=== PATIENT | male | born 1940 | race Caucasian/White ===

== ENCOUNTER 2016-10-10 16:36 | Inpatient (IN) | payer MEDICARE, OTHER ==
[~2016-10-10] VITALS: Ht 190.5 cm; Wt 68.0 kg
[~2016-10-10 16:36] MED LIST: GLIM1TAB PO; METF10002 PO; METF500T4 PO; MYA400 PO; WARF5TAB7 PO; WARF7.5T4 PO; [UNRECOGNIZED DRUG - CODE] PO; [UNRECOGNIZED DRUG - CODE] PO
[2016-10-10 16:43] VITALS: BP 159/74; PULSE 90; RESP 24; O2SAT 96
--- NOTE | 2016-10-10 16:43 | ED.REPORT ---
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 Ever since the surgeries were completed, he has been exhibiting very decreased responsiveness and has been unable to communicate. Prior to the surgeries he was alert and able to communicate and his only neurological deficit was dysphagia. The doctors at [facility] thought that he may have had a stroke during the surgeries causing his altered mental status and they hoped his symptoms would dissipate although they clearly have not. He had his ELIAZAR drain replaced on 10/07. He was transported back to [place] on 10/08 and since then has been exhibiting tachypnea. He presents to the ED today near unresponsive with a respiratory rate of 48 with oxygen saturation of 96% on 6L of oxygen by nasal cannula. Chest x-ray taken yesterday interpreted as bilateral upper lobe infiltrates with bilateral apical pleural thickening. Records indicate he was sent home on Levaquin. All of the history is obtained via the as the patient is unable to communicate. Nursing Notes Stated Complaint: RESPIRATORY DISTRESS Nursing Notes Reviewed: Yes Allergies: Coded Allergies: No Known Allergies (Verified Allergy, Unknown, 01/20/16) Scheduled Clofazimine (Clofazimine) 1 Gm Powder 50 MG PO DAILY Ethambutol (Ethambutol) 400 Mg Tablet 800 MG PO AM Ethambutol (Ethambutol) 400 Mg Tablet 400 MG PO PM Glimepiride (Glimepiride) 1 Mg Tablet 1 MG PO DAILYAC Metformin (Metformin) 500 Mg Tablet 500 MG PO QAM Take with breakfast along with 1000mg metformin. Metformin (Metformin) 1,000 Mg Tablet 1,000 MG PO BID Rifabutin (Rifabutin) 150 Mg Capsule 150 MG PO BID Warfarin Sodium (Warfarin Sodium) 7.5 Mg Tablet 7.5 MG PO Wednesday Warfarin Sodium (Warfarin Sodium) 5 Mg Tablet 10 MG PO Qpm except Wednesday General Time Seen by MD: 16:36 Chief Complaint Other (Resp distress) Hx Obtained From: Spouse, EMS Arrived By: Ambulance Sudden in Onset?: No Onset Occurred: 4 days ago Symptom Duration: Since onset Recent Healthcare: Recent doctor visit, Recent hospitalization, Recent testing , Previous diagnosis, Previous surgery, Prior workup Similar Sx Previous: No Past Medical History Past Medical History Notes: Limited due to patient condition. 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 s/p lesion removal at [facility] - September 2016 CVA Anticoagulated on Warfarin Atrial fibrillation/flutter Type 2 diabetes Hyperlipidemia Actinic keratosis BPH Hx of subarachnoid hemorrhage Chronic dysphagia and hx of aspiration Severe protein/caloric malnutrition GERD Bronchiectasis Past Surgical History Pulmonary cavitary lesion repair September 2016 at [facility] Shoulder 2007 Knee Family History Unremarkable Social History Alcohol Use: Denies alcohol use Drug Use: Denies drug use Other Social History: Good social support, Ambulatory Status Wheelchair Review of Systems Review of Systems Note: ROS limited due to mental status Respiratory: Reports: Shortness of breath Complete sys rev & neg: except as marked. Neurologic: Reports: Change LOC Physical Exam Initial Vital Signs Vital Signs (First) Date Time Temp Pulse Resp B/P Pulse Ox O2 Delivery O2 Flow Rate FiO2 10/10/16 16:43 36.4 90 24 159/74 96 Nasal Cannula 6 Initial VS: Reviewed, Vital signs abnormal GENERAL: Critically ill-appearing Minimally responsive Cachectic Neck: Atraumatic, Supple Respiratory / Chest: No stridor Resp Distress / Stridor: Positive: Resp distress severe Coarse breath sounds bilaterally Tachypneic with respiratory rate of 48 ELIAZAR drain in left posterior chest with serosanguinous drainage Cardiovascular: Heart rate NL, Regular rhythm, Heart sounds NL, No murmurs ENT: Airway patent, Mucous membranes moist Abdomen: Atraumatic, Soft G tube in place with minimal surrounding erythema, mild green discharge expressed NEURO: Somnolent Mildly arousable Follows commands to squeeze my hand PSYCH: Unable to assess Interpretation & Diagnostics Lab Results Interpretation Result Diagram: 10/10/16 1643 10/10/16 1643 Test 10/10/16 16:43 10/10/16 18:15 10/10/16 18:30 White Blood Count 14.4th/mm3 (3.8-10.1) Red Blood Count 3.67mil/mm3 (4.40-5.80) Hemoglobin 10.3g/dL (13.8-17.2) Hematocrit 33.9% (41.0-50.0) Mean Corpuscular Volume 92.4fL (81-100) Mean Corpuscular Hemoglobin 38.1pg (27.0-35.0) Mean Corpuscular Hemoglobin Concent 30.4% (32.0-37.0) Red Cell Distribution Width 16.9% (12.3-15.4) Platelet Count 418bil/L (150-400) Neutrophils (%) (Auto) 83.2% (40-74) Lymphocytes (%) (Auto) 3.3% (14-46) Monocytes (%) (Auto) 12.7% (4-12) Eosinophils (%) (Auto) 0.1% (0-5) Basophils (%) (Auto) 0.1% (0-3) Hold Purple Top Tube Received (Received) Prothrombin Time 10.0sec (8.1-12.5) Prothromb Time International Ratio 0.94ratio Activated Partial Thromboplast Time 25.0sec (22.8-33.0) Hold Blue Top Tube Received (Received) Sodium Level 146mEq/L (134-144) Potassium Level 4.9mEq/L (3.5-5.2) Chloride Level 101mEq/L (97-108) Carbon Dioxide Level 34mmol/L (18-29) Blood Urea Nitrogen 40mg/dL (8-27) Creatinine 0.79mg/dL (0.76-1.27) Estimat Glomerular Filtration Rate 101mL/min (>59) Glucose Level 284mg/dL (60-99) Calcium Level 11.3mg/dL (8.5-10.1) Total Bilirubin 0.4mg/dL (0.0-1.2) Aspartate Amino Transf (AST/SGOT) 29U/L (0-50) Alanine Aminotransferase (ALT/SGPT) 19U/L (0-44) Alkaline Phosphatase 94U/L (25-160) Troponin T 0.062ug/L (0.0-0.011) Pro-B-Type Natriuretic Peptide 1702pg/mL (0-486) Total Protein 6.6g/dL (6.4-8.4) Albumin 2.2g/dL (3.4-5.0) Procalcitonin 0.11ng/mL (0.00-0.08) Hold [place] Top Tube Received (Received) Urine Color Yellow (YELLOW) Urine Appearance Clear (CLEAR,HAZY) Urine pH 5.5 (5.0-8.0) Urine Specific [place] 1.025 (1.003-1.035) Urine Protein Negativemg/dL (NEG,TRACE) Urine Glucose (UA) Negativemg/dL (NEGATIVE) Urine Ketones Negativemg/dL (NEGATIVE) Urine Occult Blood Trace (NEGATIVE) Urine Nitrite Negative (NEGATIVE) Urine Bilirubin Negative (NEGATIVE) Urine Urobilinogen Normalmg/dL (NORMAL) Urine Leukocyte Esterase Negative (NEGATIVE) Urine RBC 0-2/hpf (0-2) Urine WBC 0-5/hpf (0-5) Urine Epithelial Cells Occasional/hpf (NONE-MOD) Urine Crystals Amorphous urates (NONE Urine Bacteria None/hpf (NONE-FEW) Urine Hyaline Casts None/lpf (NONE) Urine Granular Casts None seen (NONE SEEN) Urine Waxy Casts None seen (NONE SEEN) Urine Red Blood Cell Casts None seen (NONE SEEN) Urine White Blood Cell Casts None seen (NONE SEEN) Urine Mucus None seen (None Seen) Urine Trichomonas None seen (NONE SEEN) Urine Yeast None (NONE SEEN) Urinalysis Comment None Urine Culture Reflexed Not indicated CSF Appearance Clear (CLEAR) CSF Color Colorless (COLORLESS) CSF WBC 0/mm3 (0-5) CSF RBC 3/mm3 CSF Mononuclear WBCs % CSF Polynuclear WBCs % CSF Other Cells CSF Glucose 148mg/dL (45-90) CSF Total Protein 16mg/dL (15-45) ECG Interpretation ECG Interpretation: Sinus rhythm rate [address] segment or T wave changes Time: 17:27 Interpreted by: ED physician Normal ECG Interpretation: No acute ischemic changes X-Ray Chest Interpretation Chest Xray Interpretation: FINDINGS: Surgical changes and devices: None. Lungs and pleura: No pleural effusions or pneumothorax. Lungs are abnormal with a bilateral chronic pneumonia pattern, and also presumed distortion of operative procedures at each upper lobe where a new surgical clips and rib resections are present nearly symmetric in appearance bilaterally. Also, lower lung surgical clips are seen. Mediastinum: Mediastinal contours appear normal. Heart size is normal. Bones and chest wall: No suspicious bony lesions. Overlying soft tissues appear unremarkable. IMPRESSION: Extensive postsurgical changes as discussed, chronic lung disease, no pneumothorax found. Dictated by: Grey Davis M.D. on 10/10/2016 at 17:35 Approved by: Grey Davis M.D. on 10/10/2016 at 17:36 View: Portable, 1 view Interpretation / Wet Read by: Interpret - Radiologist CT Head Interpretation IMPRESSION: Normal for age, source of altered mental status is not seen. Dictated by: Grey Davis M.D. on 10/10/2016 at 18:00 Approved by: Grey Davis M.D. on 10/10/2016 at 18:00 Study: Head CT no contrast Interpretation / Wet Read by: Interpret - Radiologist Procedures Lumbar Puncture Text / Dict Note: Clear fluid expressed Time: 18:24 Procedure Performed by: ED physician Consent / Setup / Site Prep: Informed consent provided, Consent from spouse , Time-out performed, Hand hygiene observed, Stand sterile technique, Sterile drapes applied, Patient sitting up Skin Preparation Agent: Betadine Local Anesthesia: Lidocaine w epi 1% Inserted Needle at: L3 L4 Post-Procedure / Complications: Dressing applied, No complications, Tolerated procedure well, Patient stable (no change in VS before or after procedure) Re-Eval/Medical Decision Med Decision/Clinical Course 76-year-old male history of diabetes, Mycobacterium avium, recent [address] [facility] for bilateral thoracotomy for cavitary lesion evacuations presenting with altered mental status 4 days. By reports worsening shortness of breath and altered mental status 4 days. On arrival he is minimally responsive. Requiring 6 L oxygen. He is able to follow minimal commands but is very somnolent. His white count is 14,000. His chest x-ray shows chronic bilateral pneumonia. CT chest is pending. Urine is negative for infection. Lumbar puncture was performed and CSF is pending. His CT brain with no acute pathology. Discussed with infectious disease Dr. Miranda inthis patient well and recommended vancomycin, Levaquin, Zosyn to cover hospital acquired pneumonia with CSF results pending. He will see the patient. Admitted for altered mental status, pneumonia, severe respiratory distress. On discussion with the family is DNR/DNI and they are considering comfort measures but this time would like to pursue antibiotics. They are aware that he may not survive this episode. He was admitted to CCU-step down unit in critical condition. Not a good bipap candidate given AMS will keep on oxymask for now. Source of Hx: Old records, EMS, Family Re-Evaluation/Progress : Time of Eval: 17:54 Re-Evaluation/Progress Note: Pt rechecked. Informed family of need for admission. Family understands and agrees with need for admission. All questions addressed. Consultation #1: Referral / Consult Name: Emeka Miranda MD Call Returned at: 17:52 Tow Boat Captain: Will see patient, Agrees with eval, Agrees with plan Note: Consulted ID. Recommends LP and admit. Consultation #2: Referral / Consult Name: Mario Olivo MD Consulted With: Hospitalist Call Returned at: 18:09 Tow Boat Captain: Will see patient, Agrees with eval, Agrees with plan, Accepts admit Counseled Regarding: Diagnosis, Lab results, Need for admission Discharge & Departure Impression: Primary Impression: Hospital-acquired pneumonia Additional Impressions: Respiratory failure Chronicity: acute Respiratory failure complication: hypoxia Qualified Code : J96.01 - Acute respiratory failure with hypoxia Altered mental status Altered mental status type: somnolence Qualified Code: R40.0 - Somnolence History of Mycobacterium avium complex infection Disposition: ADMITTED TO HOSPITAL Discharge Condition All VS Reviewed: Yes Condition: Critical Referrals: Pramod Blancas MD (PCP) Crit Care Except Billable Proc Time Spent: 30-74 minutes Services Performed: Patient management by me, Time spent at bedside, Reviewing test results, Reviewing imaging, Discussing patient care, Documentation in record, Time with fam/surrogate Critical Care Notes: 60 minutes Scribe Attestation Portions of this note were transcribed by Gopi Ramos. IDr. Duckworth personally performed the history, physical exam and medical decision-making; I reviewed and confirmed the accuracy of the information in the transcribed note. copies to: Pramod Blancas MD, Ben M MD Oct 10, 2016 16:43 GOPI RAMOS Oct 10, 2016 16:57 Time Spent: 30-74 minutes Services Performed: Patient management by me, Time spent at bedside, Reviewing test results, Reviewing imaging, Discussing patient care, Documentation in record, Time with fam/surrogate Critical Care Notes: 60 minutes Scribe Attestation Portions of this note were transcribed by Gopi Ramos. Dr. Donita Pal personally performed the history, physical exam and medical decision-making; I reviewed and confirmed the accuracy of the information in the transcribed note. copies to: Pramod Blancas MD, Ben M MD Oct 10, 2016 16:43 GOPI RAMOS Oct 10, 2016 16:57
[2016-10-10 17:19] LABS: INR 0.94 ratio
[2016-10-10 17:26] LABS: BASOPHILS % (AUTO) 0.1 % (0-3); EOSINOPHILS % (AUTO) 0.1 % (0-5); MONOCYTES % (AUTO) 12.7 % (4-12); Mean Corpuscular Hemoglobin 38.1 pg (27.0-35.0); Mean Corpuscular Volume 92.4 fL (81-100); NEUTROPHILS % (AUTO) 83.2 % (40-74); Platelet Count 418 bil/L (150-400)
--- NOTE | 2016-10-10 17:38 | DRSVH ---
PROCEDURE: X-RAY CHEST ONE VIEW, PORTABLE ([id number]) INDICATIONS: dyspnea TECHNIQUE: One view of the chest was acquired. COMPARISON: None. FINDINGS: Surgical changes and devices: None. Lungs and pleura: No pleural effusions or pneumothorax. Lungs are abnormal with a bilateral chronic pneumonia pattern, and also presumed distortion of operative procedures at each upper lobe where a n ew surgical clips and rib resections are present nearly symmetric in appearance bilaterally. Also, l ower lung surgical clips are seen. Mediastinum: Mediastinal contours appear normal. Heart size is normal. Bones and chest wall: No suspicious bony lesions. Overlying soft tissues appear unremarkable. IMPRESSION: Extensive postsurgical changes as discussed, chronic lung disease, no pneumothorax found . Dictated by: Grey Davis M.D. on 10/10/2016 at 17:35 Approved by: Grey Davis M.D. on 10/10/2016 at 17:36
[2016-10-10 17:40] LABS: TROPONIN T 0.062 ug/L (0.0-0.011)
--- NOTE | 2016-10-10 18:02 | DRSVH ---
PROCEDURE: CT BRAIN WITHOUT CONTRAST ([id number]) INDICATIONS: altered mental status TECHNIQUE: Noncontrast 4.5 mm thick angled axial sections acquired from the foramen magnum to the vertex, with c oronal reformats. COMPARISON: [facility], CT, CT BRAIN WO CON, 01/02/2016, 14:44. FINDINGS: Image quality: Excellent. CSF spaces: Basal cisterns are patent. No extra-axial fluid collections. Ventricles are normal in size and shape. Brain: No midline shift. No intracranial masses or hemorrhage. Gomez-white matter interface is norm al. Skull and face: Calvarium and visualized facial bones are intact, without suspicious lesions. Sinuses: Visualized sinuses and mastoids are clear. IMPRESSION: Normal for age, source of altered mental status is not seen. Dictated by: Grey Davis M.D. on 10/10/2016 at 18:00 Approved by: Grey Davis M.D. on 10/10/2016 at 18:00
[2016-10-10] MEDS ORDERED: Ondansetron 2 mg/mL 2 mL Inj IVPUSH PRN ×2 (18:10→23:20)
[2016-10-10] MEDS ORDERED: Alum-Mag Hydrox-Simeth 30 mL Suspension PO PRN (18:10)
[2016-10-10] MEDS ORDERED: 0.9% Sodium Chloride 500 ML IV ONE (18:28)
[2016-10-10] MEDS ORDERED: Piperacillin-Tazo 3.375 Gm Inj 3.375 GM in Dextrose 5% Minibag Plus 50 ML IV ONE ×2 (18:30→21:30)
[2016-10-10] MEDS ORDERED: Vancomycin Dose per Pharmacist XX ONE (18:30)
[2016-10-10] MEDS ORDERED: levoFLOXacin Inj 750 MG in IV Premix 1 EACH IV ONE (18:30)
[2016-10-10 18:32] VITALS: BP 105/49; PULSE 86; RESP 34; O2SAT 100
[2016-10-10] MEDS ORDERED: Vancomycin Inj 1,500 MG in 0.9% Sodium Chloride 500 ML IV ONE (18:40)
[2016-10-10 18:43] LABS: APPEARANCE,URINE CLEAR (CLEAR,HAZY); COLOR,URINE YELLOW (YELLOW); OCCULT BLOOD,URINE TRACE (NEGATIVE); PH,URINE 5.5 (5.0-8.0); UROBILINOGEN,URINE NORMAL (NORMAL)
[2016-10-10 19:14] LABS: APPEARANCE,CSF CLEAR (CLEAR); COLOR,CSF COLORLESS (COLORLESS); WHITE BLOOD CELL,CSF 0 /mm3 (0-5)
--- NOTE | 2016-10-10 19:21 | DRSVH ---
PROCEDURE: CT ANGIO CHEST PULMONARY EMBOLISM ([id number]) INDICATIONS: dyspnea recent lung surgery TECHNIQUE: After the administration of intravenous contrast, 2 mm thick sections acquired from the pulmonary api valeriy to the posterior costophrenic angles. 3-dimensional maximum intensity projection (MIP) coronal a nd sagittal reformats were then acquired through the thorax. For radiation dose reduction, the follo wing was used: automated exposure control, adjustment of mA and/or kV according to patient size. COMPARISON: [facility], CT, CT CHEST WO CON, 02/26/2016, 17:20. [facility], CR, XR CHEST 1VW (PORTABLE), 10/10/2016, 17:07. FINDINGS: Image quality: Excellent. Pulmonary arteries: Pulmonary arteries are normal in size, and demonstrate no intraluminal filling d efects to suggest central pulmonary embolism. Lungs and pleura: Lungs are abnormal with dense consolidation at the upper lungs bilaterally, and a lesser degree of alveolar consolidation at the mid and lower lungs bilaterally best seen posteriorly. Small bilateral left greater than right pleural effusions and no pneumothorax. Central and peripher al airways are patent. Mediastinum: Heart size is normal, without pericardial effusion. No mediastinal or hilar adenopathy . Thoracic aorta is normal in caliber and enhancement. Esophagus is normal in caliber, without hiat al hernia. Bones and chest wall: No suspicious bony lesions. Ribs and thoracic spine appear intact throughout. Thyroid gland appears normal where well visualized. No axillary or supraclavicular adenopathy. Abdomen: Visualized upper abdominal solid organs appear normal in the early arterial phase of enhanc ement. IMPRESSION: Prominent bilateral upper and midlung alveolar consolidation in this patient who has und ergone extensive surgical intervention at the upper lungs bilaterally. It is unclear whether this re presents an expected sequela of the operative procedure but this is in an area previously more normal appearing lung parenchyma with cavitary lesions bilaterally (left greater than right in February of 2016). Additional airspace disease has extended inferiorly into the lungs through their middle and lower thi rds bilaterally. Small left effusion incidentally noted. Dictated by: Grey Davis M.D. on 10/10/2016 at 19:16 Approved by: Grey Davis M.D. on 10/10/2016 at 19:20
[2016-10-10 19:44] VITALS: BP 112/64; PULSE 87; RESP 22; O2SAT 68; O2SAT 93
--- NOTE | 2016-10-10 20:45 | PCM.HPMED ---
Subjective Date of Service Oct 10, 2016 Primary Provider: Admitting Physician: Mario Olivo MD Primary Care Physician: Pramod Blancas MD Attending Physician: Mario Olivo MD Admit Status: From the Emergency Department Chief Complaint: Altered Mental Status History of Present Illness: Sim Pryor is a 76 y/o male with a history of recent bilateral upper lobe wedge resections for cavitary lesion repair secondary to chronic mycobacterium avium intracellulare infection, as well as a distant history of cerebrovascular accident in 2008 and SAH in 2014 as well as and atrial fibrillation previously on warfarin, diabetes mellitus [id number] presenting to the [facility] ED via EMS from [facility] with his due to worsening altered mental status onset 4 days ago. Due to the patient's altered mental status history was obtained from the as well as from the ED physician and recent [facility] hospital records. The patient was followed for MAC infection by Dr. Miranda as well as the pulmonary MAC specialist at [facility] and had been on chronic antibiotic therapy for reportedly over a years including azithromycin, ethambutol, rifabutin, moxifloxacin as well as Clofazimine.The patient was initially diagnosed [address] chest CT, bronchoscopy, and sputum cultures. However the patient failed to improve on antibiotic therapy and was recently hospitalized from early 09/16/2016 to 10/08/2016 at [facility] for bilateral upper lobe wedge resection to remove pulmonary cavitary lesions caused by mycobacterium avium complex. Per secondary report ever since the surgeries were completed, he has been exhibiting very decreased responsiveness with episodes of worsening respiratory status and has been unable to communicate. The reports that prior to the recent lobectomies he was alert and able to communicate and his only neurological deficit from the subarachnoid hemorrhage in 2014 was dysphagia. Per the ED provider "The doctors at [facility] thought that he may have had a stroke during the surgeries causing his altered mental status and they hoped his symptoms would dissipate although they clearly have not." The patient was discharged back to [facility] in [place], [place] via ambulance on 10/08 and since then has been exhibiting tachypnea however records from [facility] mentioned tachypnea on October 05 as well. He presented to the ED today near unresponsive with a respiratory rate of 48 with oxygen saturation of 96% on 6L of oxygen by nasal cannula. Chest x-ray taken yesterday interpreted as bilateral upper lobe infiltrates with bilateral apical pleural thickening. Records from [facility] indicate he was discharged on Levaquin. The indicates that the patient has expressed a desire to be DNR/DNI. Review of Systems: Unable to obtain a review of systems due to altered mental status. Allergies Coded Allergies: No Known Allergies (Verified Allergy, Unknown, 01/20/16) Home Medications Medications per [facility] Ethambutol 1200 MG PO via PEG Tamsulosin 0.4 mg via PEG Lantus 14 units at bedtime Levaquin 75 mg via PEG Rifabutin 150 mg via PEG Famotidine 20 mg via PEG Metoclopramide 5 mg every 6 hours. Tylenol 650 mg every 6 hours via PEG Humalog lispro 6 units subcutaneous 5 times daily as well as sliding scale MiraLAX when necessary Oxycodone 5 mg solution every 4 hours when necessary Trazodone when necessary for insomnia PMH Mycobacterium avium complex with pulmonary cavitated lesions s/p lesion removal at [facility] - September 2016 CVA in 2008 Paroxysmal Atrial fibrillation/flutter Type 2 diabetes not insulin dependant Hyperlipidemia Actinic keratosis BPH Hx of subarachnoid hemorrhage 2014 Chronic dysphagia and hx of aspiration Severe protein/caloric malnutrition GERD Bronchiectasis Surgical History Pulmonary cavitary lesion repair September 2016 at [facility] Shoulder 2007 Knee Family History Mother had diabetes mellitus Father is of unknown cause Social History Occupation: retired Hx Alcohol Use: No Hx Substance Use: No Hx Tobacco Use: Yes Smoking Status: Former Smoker Years of Smokin Living Arrangement: [facility] Facility Exam Vital Signs Vital Sign - Last Date Time Temp Pulse Resp B/P Pulse Ox O2 Delivery O2 Flow Rate FiO2 10/10/16 19:44 36.5 87 22 112/64 68 OxyMask 5.00 Exam General: Cachectic elderly gentleman on wearing an oxygen mask in tachypnic mild respiratory distress not following commands Eyes: Pupils constricted equal round and reactive to light, anicteric sclera, noninjected conjunctiva HENT: Normocephalic atraumatic, dry mucous membranes without central cyanosis, oropharynx clear without purulent exudate or cobblestoning mucosa Neck: Supple, trachea midline, without thyromegaly or JVD Cardiovascular: Regular rate and regular rhythm, S1-S2 present, no S3-S4, without murmurs rubs or gallops noted Lungs/chest wall: Tachypneic with coarse breath sounds bilaterally left worse than right, with decreased breath sounds on the left and notable dullness to percussion over the left chest wall, without wheezing, patient appears to have a well healed surgical scar on his right posterior axillary region and has a drain in place in his left axilla with serosanguineous drainage in the bulb Abdomen: Soft, nontender, nondistended, tympanic to percussion, normal active bowel sounds, without organomegaly, PEG in place in epigastrium Extremities: No cyanosis clubbing or edema noted, pulses intact bilaterally at dorsalis pedis and radial : Morales catheter in place Skin: Warm and dry MSK: Patient is cachectic with notable muscle atrophy globally Neuro: Unable to obtain due to altered mental status Psych: Unable to obtain due to altered mental status Lab and Diagnostics Result Diagram: 10/10/16 1643 10/10/16 1643 X-Rays, CTs and MRIs CT ANGIO CHEST PULMONARY EMBOLISM IMPRESSION: Prominent bilateral upper and midlung alveolar consolidation in this patient who has undergone extensive surgical intervention at the upper lungs bilaterally. It is unclear whether this represents an expected sequela of the operative procedure but this is in an area previously more normal appearing lung parenchyma with cavitary lesions bilaterally (left greater than right in February of 2016). Additional airspace disease has extended inferiorly into the lungs through their middle and lower thirds bilaterally. Small left effusion incidentally noted. Approved by: Grey Davis M.D. on 10/10/2016 at 19:20 CT BRAIN WITHOUT CONTRAST IMPRESSION: Normal for age, source of altered mental status is not seen. Approved by: Grey Davis M.D. on 10/10/2016 at 18:00 X-RAY CHEST ONE VIEW, PORTABLE IMPRESSION: Extensive postsurgical changes as discussed, chronic lung disease, no pneumothorax found. Approved by: Grey Davis M.D. on 10/10/2016 at 17:36 Assessment & Plan Sim Pryor is a 76 y/o male with a history of recent bilateral upper lobe wedge resections for cavitary lesion repair secondary to chronic mycobacterium avium intracellulare infection, as well as a distant history of cerebrovascular accident in 2008 and SAH in 2014 as well as and atrial fibrillation previously on warfarin, diabetes mellitus [id number] presenting to the [facility] ED via EMS from [facility] with his due to worsening altered mental status onset 4 days ago. # Acute hypercapnic respiratory failure - ABG shows a ph of 7.1 with a CO2 of 131, O2 of 83 and HCO3 of 39 - patient is DNI and a poor candidate for biPAP as he will not be able to protect his airway, but PEEP to stent open possible collapsed airways causing CO2 trapping was considered - A discussion was held with the patient's at bedside, given the patient's acute deteriorating respiratory status on chronic deteriorating health he will be made comfort care # Acute Severe sepsis - SIRS criteria are met with white cell count of 14.4, pulse of 90, respiratory rate of 24, temperature 36.4 on admission - Severe sepsis criteria met with lactic acid of 2.3 on admission - Likely secondary to hospital-acquired pneumonia with CT chest being read as prominent bilateral upper and midlung alveolar consolidation and with recent discharge from [facility] on October 08 - One half normal saline at 200 mL's per hour - Trend lactic every 2 hours repeated normal at 1.9 - Antibiotics discussed in pneumonia below - Blood culture pending - A discussion was held with the patient's at bedside, given the patient's acute deteriorating respiratory status on chronic deteriorating health he will be made comfort care # Acute bilateral Hospital acquired pneumonia - Patient has a history of chronic MAC infection with recent bilateral upper lobe wedge resections for significant cavitary lesions discharged from [facility] on October 08 - Infectious disease Dr. Botello was consulted from the emergency department and giving the CT scan results will be placed on antibiotics for hospital-acquired pneumonia including vancomycin, Levaquin, Zosyn - Vancomycin 1500 mg IV started in ED - Levaquin 750 mg IV started in the ED - Zosyn 3.375 grams started in ED - A discussion was held with the patient's at bedside, given the patient's acute deteriorating respiratory status on chronic deteriorating health he will be made comfort care # Acute altered mental status - likely secondary to severe hypercapnia seen on ABG - Patient has a history of CVA in 2009 as well as subarachnoid hemorrhage in 2015 however reports only lasting effects are dysphasia - Patient does have a history of atrial fibrillation and was previously on warfarin however this medication has been discontinued and it is uncertain of how long, [facility] records indicate that the patient has been on Lovenox 40 mg which is subtherapeutic for anticoagulation for Afib - Per 's report of the patient has had a noted altered mental status since his recent surgery at [facility] however has deteriorated significantly in the last several days - CT scan was negative for acute intracranial pathology - Lumbar puncture performed in ED shows a glucose of 148 with protein of 16 and no white blood cells making acute bacterial encephalopathy or meningitis less likely - CSF to be run for viral PCR - CSF Gram stain and culture pending - A discussion was help with the patient's at bedside, given the patient's acute deteriorating respiratory status on chronic deteriorating health he will be made comfort care # Acute respiratory acidosis and metabolic alkalosis - Bicarbonate on initial CMP is 34 - This may be able to explain the patient's recent altered mental status - ABG shows a ph of 7.1 with a CO2 of 131, O2 of 83 and HCO3 of 39 - patient is DNI and a poor candidate for biPAP as he will not be able to protect his airway but PEEP to stent open airways causing CO2 trapping could be considered - A discussion was help with the patient's at bedside, given the patient's acute deteriorating respiratory status on chronic deteriorating health he will be made comfort care # Chronic diabetes mellitus [id number] - Patient is currently nothing by mouth given altered mental status - Lispro correction scale ordered - Records indicate the patient was previously on long-acting glargine 14 units at night however given currently nothing by mouth this will be considered for initiation in the future - A discussion was help with the patient's at bedside, given the patient's acute deteriorating respiratory status on chronic deteriorating health he will be made comfort care # Chronic anemia - Patient's hemoglobin is 10.3 on admission this is near baseline - Monitor daily - A discussion was help with the patient's at bedside, given the patient's acute deteriorating respiratory status on chronic deteriorating health he will be made comfort care # Chronic Protein deficient malnutrition - BMI on admission of 18.7 with albumin of 2.2 - Per [facility] Records the patient would have been considered for surgery sooner however required weight gain prior to be considered a optimal surgical candidate - Patient is currently nothing by mouth given altered mental status - Dietitian consult will be placed - A discussion was help with the patient's at bedside, given the patient's acute deteriorating respiratory status on chronic deteriorating health he will be made comfort care # History of chronic paroxysmal atrial fibrillation/flutter - Patient was previously on warfarin however records from [facility] indicate this medication is no longer being continued and PT/INR are normal - Patient is currently in normal sinus rhythm with a heart rate in 70s - Telemetry in place - A discussion was held with the patient's at bedside, given the patient's acute deteriorating respiratory status on chronic deteriorating health he will be made comfort care DVT prophylaxis: Enoxaparin 40 mg to be started more than 12 hours after recent LP GI prophylaxis: Not indicated at this time CODE STATUS DNR/DNI discussed with at bedside The patient is admitted to inpatient status with expected length of stay greater than to midnights given presenting symptoms, likely diagnosis, possible complications, and required treatment. Pain Evaluation: Adequate Pain Control GI Prophylaxis: Not indicated VTE Prophylaxis Indicated: Meets Criteria for Anticoag Therapy VTE Prophylaxis: Sub-Q Enoxaparin VTE Mechanical Devices: Intermittant Pneumatic CD Resuscitation Status: DNR/DNI:Do Not Resuscitate/Intubate Attending Statement The patient was seen and examined together with house staff on 10/10/2016 and I agree with the history, exam and plan as outlined in the note above. Ron Silva DO Oct 10, 2016 20:45 Meggan Chi DO Oct 11, 2016 05:00
[2016-10-10] MEDS ORDERED: Glucose 40% Oral Gel 15 Gm Tube PO PRN (20:50)
--- NOTE | 2016-10-10 21:46 | PCM.CONPHA ---
Subjective Requesting Provider: Ron Silva DO Altered Mental Status Reason for Pharmacy Consult: Vancomycin Dosing Assessment/Plan Assessment/Plan Vancomycin dosing per pharmacy for pneumonia with goal trough 15-20: WBC 14.4 LA 2.3 Afebrile Ht 75 onches Wt 68 KG Serum Cr=0.79 Creatinine Cl=74ml/min ([facility]) Vancomycin 1.25 loading dose given at 2130. Subsequent dosing will be vancomycin 1 Gram IV q 12 hours with an anticipated trough of 18 (calculations confirmed in [facility]). A trough has been ordered for 0810/12, which will be evaluated by the floor pharmacist. Pharmacy will monitor renal function daily. Florecita Kirkland [facility] Oct 10, 2016 21:46
[2016-10-10] MEDS ORDERED: Insulin LISPRO 300 Unit/3 mL Inj SUBQ SCH (22:00)
--- NOTE | 2016-10-10 22:14 | ABG ---
DateTimeAnalyzed 22:06:00 -_ pH ____7.102 - 7.350 7.450 pCO2 131 -mmHg 35.0 45.0 pO2 ___83.2__ -mmHg 70.0 100 HCO3- ___39.0__ -mmol/L 22.0 26.0 ABE ____6.2__ -mmol/L -2.0 2.0 tHb ___10.2__ -g/dL 12.0 18.0 O2Hb ___89.7__ -% 95.0 COHb ____1.0__ -% 1.5 MetHb ____1.1__ -% 0.4 1.5 sO2 ___91.6__ -% 25.0 FIO2 ___38.0__ -% Drawn By TLA - Date/Time Notified____ 22:14:00 -_ Spontaneous_RR ___39.0__ -b/min Liter_Flow ____5.0__ -L/min Oxygen Device 1 SIMP MASK - Notified By TLA - Notified Whom ___Dr. Hasandras - B 755 -mmHg tO2 ___12.9__ -Vol% Nacho test _Positive -
[2016-10-10] MEDS ORDERED: Artificial Tears 15 mL Ophthalmic Solution AFFECT_EYE PRN (23:20)
[2016-10-10] MEDS ORDERED: Atropine 1% 5 mL Ophthalmic Solution PO PRN (23:20)
[2016-10-10] MEDS ORDERED: Glycopyrrolate 0.2 MG/ML 1mL Inj IVPUSH PRN (23:20)
--- NOTE | 2016-10-11 01:35 | PCM.DC.MEX ---
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 It is unclear whether this represents an expected sequela of the operative procedure but this is in an area previously more normal appearing lung parenchyma with cavitary lesions bilaterally (left greater than right in February of 2016). Additional airspace disease has extended inferiorly into the lungs through their middle and lower thirds bilaterally. Small left effusion incidentally noted. Approved by: Grey Davis M.D. on 10/10/2016 at 19:20 CT BRAIN WITHOUT CONTRAST IMPRESSION: Normal for age, source of altered mental status is not seen. Approved by: Grey Davis M.D. on 10/10/2016 at 18:00 X-RAY CHEST ONE VIEW, PORTABLE IMPRESSION: Extensive postsurgical changes as discussed, chronic lung disease, no pneumothorax found. Approved by: Grey Davis M.D. on 10/10/2016 at 17:36 Brief History Sim Pryor is a 76 y/o male with a history of recent bilateral upper lobe wedge resections for cavitary lesion repair secondary to chronic mycobacterium avium intracellulare infection, as well as a distant history of cerebrovascular accident in 2008 and SAH in 2014 as well as and atrial fibrillation previously on warfarin, diabetes mellitus [id number] presenting to the [facility] ED via EMS from [facility] with his due to worsening altered mental status onset 4 days ago. Due to the patient's altered mental status history was obtained from the as well as from the ED physician and recent [facility] hospital records. The patient was followed for MAC infection by Dr. Miranda as well as the pulmonary MAC specialist at [facility] and had been on chronic antibiotic therapy for reportedly over a years including azithromycin, ethambutol, rifabutin, moxifloxacin as well as Clofazimine.The patient was initially diagnosed [address] by chest CT, bronchoscopy, and sputum cultures. 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 Per secondary report ever since the surgeries were completed, he has been exhibiting very decreased responsiveness with episodes of worsening respiratory status and has been unable to communicate. The reports that prior to the recent lobectomies he was alert and able to communicate and his only neurological deficit from the subarachnoid hemorrhage in 2014 was dysphagia. Per the ED provider "The doctors at [facility] thought that he may have had a stroke during the surgeries causing his altered mental status and they hoped his symptoms would dissipate although they clearly have not." The patient was discharged back to [facility] in [place], [place] via ambulance on 10/08 and since then has been exhibiting tachypnea however records from [facility] mentioned tachypnea on October 05 as well. He presented to the ED today near unresponsive with a respiratory rate of 48 with oxygen saturation of 96% on 6L of oxygen by nasal cannula. Chest x-ray taken yesterday interpreted as bilateral upper lobe infiltrates with bilateral apical pleural thickening. Records from [facility] indicate he was discharged on Levaquin. The indicates that the patient has expressed a desire to be DNR/DNI. Hospital Course Sim Pryor is a 76 y/o male with a history of recent bilateral upper lobe wedge resections for cavitary lesion repair secondary to chronic mycobacterium avium intracellulare infection, as well as a distant history of cerebrovascular accident in 2008 and SAH in 2014 as well as and atrial fibrillation previously on warfarin, diabetes mellitus [id number] presenting to the [facility] ED via EMS from [facility] with his due to worsening altered mental status onset 4 days ago. # Acute hypercapnic respiratory failure - ABG shows a ph of 7.1 with a CO2 of 131, O2 of 83 and HCO3 of 39 - patient is DNI and a poor candidate for biPAP as he will not be able to protect his airway, but PEEP to stent open possible collapsed airways causing CO2 trapping was considered - A discussion was held with the patient's at bedside, given the patient's acute deteriorating respiratory status on chronic deteriorating health he was be made comfort care - The patient within 1 hour of initiation of comfort care set # Acute Severe sepsis - SIRS criteria are met with white cell count of 14.4, pulse of 90, respiratory rate of 24, temperature 36.4 on admission - Severe sepsis criteria met with lactic acid of 2.3 on admission - Likely secondary to hospital-acquired pneumonia with CT chest being read as prominent bilateral upper and midlung alveolar consolidation and with recent discharge from [facility] on October 08 - One half normal saline at 200 mL's per hour - Trend lactic every 2 hours repeated normal at 1.9 - Antibiotics discussed in pneumonia below - Blood culture pending - A discussion was held with the patient's at bedside, given the patient's acute deteriorating respiratory status on chronic deteriorating health he was be made comfort care - The patient within 1 hour of initiation of comfort care set # Acute bilateral Hospital acquired pneumonia - Patient has a history of chronic MAC infection with recent bilateral upper lobe wedge resections for significant cavitary lesions discharged from [facility] on October 08 - Infectious disease Dr. Botello was consulted from the emergency department and giving the CT scan results will be placed on antibiotics for hospital-acquired pneumonia including vancomycin, Levaquin, Zosyn - Vancomycin 1500 mg IV started in ED - Levaquin 750 mg IV started in the ED - Zosyn 3.375 grams started in ED - A discussion was held with the patient's at bedside, given the patient's acute deteriorating respiratory status on chronic deteriorating health he was be made comfort care # Acute altered mental status - likely secondary to severe hypercapnia seen on ABG - Patient has a history of CVA in 2009 as well as subarachnoid hemorrhage in 2014 however reports only lasting effects are dysphasia - Patient does have a history of atrial fibrillation and was previously on warfarin however this medication has been discontinued and it is uncertain of how long, [facility] records indicate that the patient has been on Lovenox 40 mg which is subtherapeutic for anticoagulation for Afib - Per 's report of the patient has had a noted altered mental status since his recent surgery at [facility] however has deteriorated significantly in the last several days - CT scan was negative for acute intracranial pathology - Lumbar puncture performed in ED shows a glucose of 148 with protein of 16 and no white blood cells making acute bacterial encephalopathy or meningitis less likely - CSF to be run for viral PCR - CSF Gram stain and culture pending - A discussion was help with the patient's at bedside, given the patient's acute deteriorating respiratory status on chronic deteriorating health he was be made comfort care # Acute respiratory acidosis and metabolic alkalosis - Bicarbonate on initial CMP is 34 - This may be able to explain the patient's recent altered mental status - ABG shows a ph of 7.1 with a CO2 of 131, O2 of 83 and HCO3 of 39 - patient is DNI and a poor candidate for biPAP as he will not be able to protect his airway but PEEP to stent open airways causing CO2 trapping could be considered - A discussion was help with the patient's at bedside, given the patient's acute deteriorating respiratory status on chronic deteriorating health he was be made comfort care Exam Test 10/10/16 16:43 10/10/16 18:15 10/10/16 18:30 10/10/16 20:37 White Blood Count 14.4th/mm3 (3.8-10.1) Red Blood Count 3.67mil/mm3 (4.40-5.80) Hemoglobin 10.3g/dL (13.8-17.2) Hematocrit 33.9% (41.0-50.0) Mean Corpuscular Volume 92.4fL (81-100) Mean Corpuscular Hemoglobin 38.1pg (27.0-35.0) Mean Corpuscular Hemoglobin Concent 30.4% (32.0-37.0) Red Cell Distribution Width 16.9% (12.3-15.4) Platelet Count 418bil/L (150-400) Neutrophils (%) (Auto) 83.2% (40-74) Lymphocytes (%) (Auto) 3.3% (14-46) Monocytes (%) (Auto) 12.7% (4-12) Eosinophils (%) (Auto) 0.1% (0-5) Basophils (%) (Auto) 0.1% (0-3) Hold Purple Top Tube Received (Received) Prothrombin Time 10.0sec (8.1-12.5) Prothromb Time International Ratio 0.94ratio Activated Partial Thromboplast Time 25.0sec (22.8-33.0) Hold Blue Top Tube Received (Received) Sodium Level 146mEq/L (134-144) Potassium Level 4.9mEq/L (3.5-5.2) Chloride Level 101mEq/L (97-108) Carbon Dioxide Level 34mmol/L (18-29) Blood Urea Nitrogen 40mg/dL (8-27) Creatinine 0.79mg/dL (0.76-1.27) Estimat Glomerular Filtration Rate 101mL/min (>59) Glucose Level 284mg/dL (60-99) Calcium Level 11.3mg/dL (8.5-10.1) Total Bilirubin 0.4mg/dL (0.0-1.2) Aspartate Amino Transf (AST/SGOT) 29U/L (0-50) Alanine Aminotransferase (ALT/SGPT) 19U/L (0-44) Alkaline Phosphatase 94U/L (25-160) Troponin T 0.062ug/L (0.0-0.011) Pro-B-Type Natriuretic Peptide 1702pg/mL (0-486) Total Protein 6.6g/dL (6.4-8.4) Albumin 2.2g/dL (3.4-5.0) Procalcitonin 0.11ng/mL (0.00-0.08) Hold Graham Top Tube Received (Received) Urine Color Yellow (YELLOW) Urine Appearance Clear (CLEAR,HAZY) Urine pH 5.5 (5.0-8.0) Urine Specific [place] 1.025 (1.003-1.035) Urine Protein Negativemg/dL (NEG,TRACE) Urine Glucose (UA) Negativemg/dL (NEGATIVE) Urine Ketones Negativemg/dL (NEGATIVE) Urine Occult Blood Trace (NEGATIVE) Urine Nitrite Negative (NEGATIVE) Urine Bilirubin Negative (NEGATIVE) Urine Urobilinogen Normalmg/dL (NORMAL) Urine Leukocyte Esterase Negative (NEGATIVE) Urine RBC 0-2/hpf (0-2) Urine WBC 0-5/hpf (0-5) Urine Epithelial Cells Occasional/hpf (NONE-MOD) Urine Crystals Amorphous urates (NONE Urine Bacteria None/hpf (NONE-FEW) Urine Hyaline Casts None/lpf (NONE) Urine Granular Casts None seen (NONE SEEN) Urine Waxy Casts None seen (NONE SEEN) Urine Red Blood Cell Casts None seen (NONE SEEN) Urine White Blood Cell Casts None seen (NONE SEEN) Urine Mucus None seen (None Seen) Urine Trichomonas None seen (NONE SEEN) Urine Yeast None (NONE SEEN) Urinalysis Comment None Urine Culture Reflexed Not indicated CSF Appearance Clear (CLEAR) CSF Color Colorless (COLORLESS) CSF WBC 0/mm3 (0-5) CSF RBC 3/mm3 CSF Mononuclear WBCs % CSF Polynuclear WBCs % CSF Other Cells CSF Glucose 148mg/dL (45-90) CSF Total Protein 16mg/dL (15-45) Lactic Acid Level 1.9mmol/L (0.4-2.0) Attending Statement The patient was seen and examined together with house staff on 10/11/2016 and I agree with the history, exam and plan as outlined in the note above. copies to: Pramod Blancas MD; Emeka Miranda MD, Nicholas K DO Oct 11, 2016 01:23 Meggan Chi DO Oct 11, 2016 05:01
--- NOTE | 2016-10-11 02:54 | NUR ---
Admit / Expiration Pt arrived from ER to PCU # [id number] approx at 1930. Pt appears obtunded. He is not responding to any stimulus. Pt is unable to answer questions. Spouse at the bedside. Pt appears tachypneic. Residents and attending at the bedside assessing pt. ABGs ordered. Results and prognosis were discussed with spouse by Dr. Silva at the bedside. Spouse electing comfort care route. Vital signs ceased at 0015. Dr. Silva notified. [facility] Office notified. [facility]#[id number]. Donor referral service notified. Ref # [id number]. Pt is not suitable for donation. [facility] called per spouses request. Await to picking supervisor the body. Body transferred to Room # 13 at 0300 by security.
[2016-10-11] MEDS ORDERED: Piper-Tazo 3.375 Gm/50 mL D5W Minibag Plus - Q8H over 4 hrs IV SCH ×2 (05:30)
[2016-10-11] MEDS ORDERED: Vancomycin Dose per Pharmacist XX SCH (08:30)
[2016-10-11] MEDS ORDERED: Vancomycin 1 Gm/200 mL NS Premix IV SCH (09:30)
[2016-10-11] MEDS ORDERED: levoFLOXacin Inj 750 MG in IV Premix 1 EACH IV SCH (18:30)
[2016-10-11] MEDS ORDERED: Insulin GLARgine 100 Unit/mL Syringe SUBQ SCH (21:00)
[2016-10-12] MEDS ORDERED: Vancomycin Serum Trough XX ONE (08:30)
== END 2016-10-11 00:15 | disposition expired | DRG 871 ==
LOC: SED 16:36 → PCC 18:32
PROVIDERS: ADMIT Internal Medicine; ATTEND Internal Medicine
PROC: 009U3ZX Drainage of Spinal Canal, Percutaneous Approach, Diagnostic (ICD-10-PCS; principal; 2016-10-10)
PROC: 4A033R1 Measurement of Arterial Saturation, Peripheral, Percutaneous Approach (ICD-10-PCS; 2016-10-10)
DX: A41.9 Sepsis, unspecified organism (principal); J18.9 Pneumonia, unspecified organism; J96.02 Acute respiratory failure with hypercapnia; E87.4 Mixed disorder of acid-base balance; A31.2 Disseminated mycobacterium avium-intracellulare complex (DMAC); R65.20 Severe sepsis without septic shock; Y95 Nosocomial condition; E11.9 Type 2 diabetes mellitus without complications; E78.5 Hyperlipidemia, unspecified; Z86.73 Personal history of transient ischemic attack (TIA), and cerebral infarction without residual deficits; I48.2 Chronic atrial fibrillation; Z66 Do not resuscitate; Z79.01 Long term (current) use of anticoagulants